=== PATIENT | female | born 1995 | race Caucasian/White ===

== ENCOUNTER 2024-01-20 06:47 | Inpatient (IN) ==
[2024-01-20] MEDS ORDERED: LIDOCAINE 1% LOCAL 20 ML VIAL INFIL PRN (07:56)
[2024-01-20] MEDS: LACTATED RINGER'S 1,000 ML IV PRN (08:13)
[2024-01-20 08:24] LABS: Hematocrit (blood only) 33.6 % (37.0-47.0); Hemoglobin 12.1 g/dl (12.0-16.0); Mean Corpuscular Volume 88.9 fL (80.0-100.0); Mean Platelet Volume 9.6 fL (9.4-12.4); Platelet Count 252 K/uL (130-400); RDW Coefficient of Variation 11.8 % (11.5-14.5); RDW Standard Deviation 37.7 fL (36.4-46.3); Red Blood Count 3.78 M/uL (4.20-5.40)
[2024-01-20] MEDS: PENICILLIN GK 6 MU in DEXTROSE 5% 250 ML IV ONE (08:24)
--- NOTE | 2024-01-20 08:34 | Anesthesiology Consultation ---
Date of Service January 20, 2024 Assessment & Plan Chart Review Chart Review: Acceptable Risk for Labor Epidural Consults Requested none ASA ASA2 Proposed Anesthesia Anesthesia Type: Labor Epidural Risk / Benefits Reviewed With: PT / POA / Parent / Guardian, Accepts Plan and Informed Consent Obtained History Height/Weight Height: 5 ft 3 in Weight: 81.647 kg Allergies Allergy/AdvReac Type Severity Reaction Status Date / Time pineapple AdvReac Swelling Verified 01/20/24 07:23 of Lip/Tongue/Throat shellfish derived AdvReac Hives Verified 01/20/24 07:23 Medications Home Medications Medication Instructions Recorded Confirmed Last Taken vit 168-iron 27 mg-folic 1 cap PO DAILY 07/02/23 01/12/24 01/19/24 21:00 acid 800 mcg-omega3 235 mg capsule (One-A-Day -1) ondansetron 4 mg disintegrating 4 mg PO DAILY #30 tabs 08/07/23 01/20/24 Unknown tablet aspirin 81 mg tablet,delayed 81 mg PO DAILY 01/12/24 01/20/24 01/19/24 21:00 release ferrous gluconate 225 mg (27 mg 225 mg PO DAILY 01/12/24 01/20/24 01/19/24 21:00 iron) tablet (Fergon) Active Medications Generic Name Dose Route Start Last Admin Trade Name Camronq PRN Reason Stop Dose Admin Lactated Ringer's 1,000 mls @ 125 mls/hr 01/20/24 07:56 01/20/24 08:13 Lr IV 01/22/24 07:55 999 mls/hr .Q8H PRN Administration L&D Protocol Protocol Penicillin G Potassium 6 mu/ 262 mls @ 262 mls/hr 01/20/24 08:10 01/20/24 08:24 Dextrose IV 01/20/24 09:09 262 mls/hr 0810 ONE Administration Past Medical History Medical History Benign positional vertigo Migraine Depression Anxiety Exercise / Class Metabolic Activity II 4-5 Yardwork/Stairs/Walk up hill Past Family History Family History Grandmother (Paternal) Ovarian cancer Father Burkitts lymphoma Sister Fibromyalgia TIA (transient ischemic attack) Other Hypertension Denies family history of Prostate cancer Myocardial infarction Breast cancer Colorectal cancer Past Surgical History Surgical History H/O wisdom tooth extraction Past Anesthesia History No Hx of Anesthesia Complications and No Family Hx of Anesthesia Complications History of PONV No Hx of PONV and No Hx of Motion Sickness Social History Smoking Status: Never smoker Do You Dip or Chew Tobacco: No Hx Alcohol Use: Yes Hx Substance Use: No Physical Exam Vital Signs Last Vital Signs Temp 98.1 F 01/20/24 07:10 Pulse 73 01/20/24 07:05 Resp 20 01/20/24 07:10 BP 129/74 01/20/24 07:05 ENMT Mouth: no dentition abnormality Thyromental Distance: > or= 3.5 Finger Breadths Mallampati Class: II Neck normal visual inspection Respiratory normal respiratory effort Auscultation: lungs clear to auscultation bilaterally Cardiovascular Rate/Rhythm: regular rate and regular rhythm Testing Laboratory Results 01/20/24 08:09
--- NOTE | 2024-01-20 08:43 | History & Physical Report ---
Date of Service January 20, 2024 Assessment & Plan (1) Premature labor: Plan Patient in labor at 35 weeks Will admit patient to L&D for further monitoring and management VSS Fetus cat 1 Rh positive mother GBS unknown; treat with Penicillin and GBS ordered RI Pitocin as needed Epidural prn Will manage expectantly Patient in agreement History of Present Illness Chief Complaint: LABOR CHECK Primary Care Provider: Maria Antonia Sheikh MD Krysten is a 28 y/o female currently at IUP 35 6/7 WGA with an JORDAN 02/18/24 as determined by certain LMP. Patient began experiencing contractions on Friday (01/18/24) which were occurring every 20 minutes. This continued through Friday (01/19/24) still every 15-20 minutes. Last night at 10pm-12am they got slightly stronger and at 12-2am they stopped. Between 2-3 am her contractions started again and were occurring every 5-7 minutes and were gradually increasing in intensity. On the car ride to the hospital, they increased in frequency once more to every 3-5minutes and were getting more intense. She has not had watery discharge or bloody shows. On arrival, she was examined by Dr. Renae and found to be 7 cm/ 90 / -1. (+) contractions (+) movement (-) fluid loss (-) bloody show External FHT and external uterine monitors used * Category 1 tracing * Moderate FHT variability. Had regular appointments since 1st trimester. OB Labs: Blood Type A Positive 07/09/23 Antibody Screen NEGATIVE 07/09/23 Hemoglobin 10.8 g/dl (12.0-16.0) L 12/02/23 Hematocrit 31.6 % (37.0-47.0) L 12/02/23 Mean Corpuscular Volume 89.1 fL (80.0-100.0) 07/09/23 Platelet Count 328 K/uL (130-400) 07/09/23 Rubella IgG Antibody Immune (Immune) 07/09/23 Rapid Plasma Reagin Nonreactive (Nonreactive) 07/09/23 Hepatitis B Surface Antigen. NON-REACTIVE (NON-REACTIVE) 07/09/23 Hepatitis C Antibody (EIA) NON-REACTIVE (NON-REACTIVE) 07/09/23 HIV (1&2) Ag and Ab Confirmation NON-REACTIVE (NON-REACTIVE) 07/09/23 Glucose 1 Hour 50 gm Load 136 mg/dl (70-130) H 12/02/23 OB Optional Labs: Chlamydia trachomatis RNA Not Detected (NotDetected) 07/09/23 Neisseria gonorrhoeae RNA Not Detected (NotDetected) 07/09/23 Labs Reviewed: Declines genetics--mln Allergies Allergy/AdvReac Type Severity Reaction Status Date / Time pineapple AdvReac Swelling Verified 01/20/24 07:23 of Lip/Tongue/Throat shellfish derived AdvReac Hives Verified 01/20/24 07:23 Home Medications Medication Instructions Recorded Confirmed Type vit 168-iron 27 mg-folic 1 cap PO DAILY 07/02/23 01/12/24 History acid 800 mcg-omega3 235 mg capsule (One-A-Day -1) ondansetron 4 mg disintegrating 4 mg PO DAILY #30 tabs 08/07/23 01/20/24 Rx tablet aspirin 81 mg tablet,delayed 81 mg PO DAILY 01/12/24 01/20/24 History release ferrous gluconate 225 mg (27 mg 225 mg PO DAILY 01/12/24 01/20/24 History iron) tablet (Fergon) Patient History Medical History Benign positional vertigo Migraine Depression Anxiety Surgical History H/O wisdom tooth extraction Family History Grandmother (Paternal) Ovarian cancer Father Burkitts lymphoma Sister Fibromyalgia TIA (transient ischemic attack) Other Hypertension Denies family history of Prostate cancer Myocardial infarction Breast cancer Colorectal cancer Social History (Updated 01/12/24 @ 10:55 by Eulalia Mathis LPN) Smoking Status: Never smoker Second Hand Exposure: No; Do You Dip or Chew Tobacco: No; Hx Alcohol Use: Yes Alcohol Intake Frequency: Monthly or Less Hx Substance Use: No Preferred Language: Chinese Communication Ability: Effective Hearing Ability: Normal Media Relations Specialist Required: No Beliefs That Will Affect Care: None marital status: marital status details: tiff (27) [phone] Current Living Situation: Spouse Current Living Situation Comment: lives with spouse, 2 dogs, 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 Other Information That Helps Us Care for You: No Feels Safe at Home: Yes Safety Concerns: Feels Safe At This Time Childhood Exposure to Second-Hand Smoke: No Diet: regular Dental Care, Regularly: Yes Physical Activity Frequency: Other Physical Activity Frequency Comment: Limited by physical condition- Seatbelt Use: always Assistive Devices: None MEDICAL SALES History Last menstrual period: Yes Menstrual reliability: definite Flow: heavy Menstrual regularity: regular Monthly: Yes Age at menarche: 14 On control pills at conception: No Date of positive home test: 06/11/23 Menstrual history comments: 28 day cycles. Review of Systems no fever, no chills and no sweats Denies changes in vision. Denies shortness of breath or respiratory difficulty. no chest pain and no palpitations no dysuria no headache(s) Physical Exam Physical Exam: General: Alert, oriented x3. Afebrile. No acute distress. Eyes: Pupils equal and reactive to light bilaterally. Extraocular movement intact bilaterally. Cardiac: Regular rate and rhythm, no murmurs/rubs/gallops. Respiratory: Clear to auscultation bilaterally a/p, no wheezes/rales/rhonchi. No increased work of breathing. Symmetrical chest rise. No respiratory distress. Abdomen: Gravid; FHR baseline of 125-130 bpm; Vertex position Pelvic: 9 / 100 / [address] Dumont Lower Extremities: No lower extremity edema or swelling. No deep calf pain. Fede's negative bilaterally Results & Data Vital Signs (Past 12 Hours) Vital Signs Temp Pulse Resp BP Pulse Ox 01/20/24 08:40 70 01/20/24 08:40 126/86 01/20/24 08:38 100 01/20/24 08:38 69 01/20/24 07:10 36.7 C 20 01/20/24 07:05 73 129/74 Supervising Physician Co-Signing Physician Notes Resident Physician Supervision Note: I interviewed and examined the patient. Discussed with Dr. Mcclure and agree with findings and plan as documented in the note. Any exceptions or clarifications are listed here: 28yo @ 35 6/7, spontaneous labor, admitted this morning. GBS unknown - PCN administered. Documented By: Eloise Dumont,
[2024-01-20] MEDS: LIDOCAINE 2%/EPINEPHRINE 1:200,000 20 ML PF ONE (08:45)
[2024-01-20] MEDS: BUPIVACAINE 0.25% PF 30 ML VIAL ONE (08:45)
[2024-01-20] MEDS ORDERED: NALOXONE HCL 1 MG in SODIUM CHLORIDE 0.9% 1,000 ML IV PRN (08:54)
[2024-01-20] MEDS ORDERED: ePHEDrine sulfate 50 MG/ML AMP IV PRN (08:54)
[2024-01-20] MEDS ORDERED: LIDOCAINE 2% MPF LOCAL 5 ML VIAL EPI PRN (08:54)
[2024-01-20] MEDS ORDERED: fentaNYL citrate PF 100 MCG/2 ML VIAL EPI PRN (08:54)
[2024-01-20] MEDS ORDERED: BUPIVACAINE 0.25% PF 30 ML VIAL EPI PRN (08:54)
[2024-01-20] MEDS ORDERED: ONDANSETRON INJ 2 MG/ML 2 ML VIAL IV PRN (08:54)
[2024-01-20] MEDS ORDERED: ROPIVACAINE 0.5% PF 5 MG/ML 20 ML VIAL EPI PRN (08:54)
[2024-01-20] MEDS ORDERED: SODIUM CHLORIDE 0.9% PF INJ 10 ML VIAL EPI PRN (08:54)
[2024-01-20] MEDS ORDERED: NALOXONE HCL 0.4 MG/1 ML VIAL/CARP IV PRN (08:54)
[2024-01-20] MEDS ORDERED: fentANYL 2 MCG/ML BUPIVacaine 0.125%-NSS 100ML BAG EPI PRN (08:54)
[2024-01-20] MEDS ORDERED: diphenhydrAMINE 50 MG/ML VIAL IV PRN (08:54)
[2024-01-20] MEDS: fentANYL 2 MCG/ML BUPIVacaine 0.125%-NSS 100ML BAG ONE (08:54)
[2024-01-20] MEDS ORDERED: NALBUPHINE HCL 5 MG in SYRINGE 0 ML IV PRN (08:54)
[2024-01-20] MEDS: ePHEDrine sulfate 50 MG/ML AMP ONE (09:12)
[2024-01-20] MEDS: SODIUM CHLORIDE 0.9% PF INJ 10 ML VIAL ONE (09:13)
[2024-01-20] MEDS: fentaNYL citrate PF 100 MCG/2 ML VIAL ONE (09:13)
--- NOTE | 2024-01-20 09:46 | History & Physical Report ---
Date of Service January 20, 2024 Assessment & Plan (1) Premature labor: Plan Krysten is a 28-year-old G1, P0 currently at 35 weeks 6 days gestational age in active labor. 1. Fetus: Cat 1 2. Labor: Active 3. GBS Unknown: PCN 4. Vitals wnl History of Present Illness Primary Care Provider: Maria Antonia Sheikh MD Krysten is a 28-year-old G1, P0 currently at 35 weeks 6 days gestational age presents in active labor. has been uncomplicated to date. OB Labs: Blood Type A Positive 07/09/23 Antibody Screen NEGATIVE 07/09/23 Hemoglobin 10.8 g/dl (12.0-16.0) L 12/02/23 Hematocrit 31.6 % (37.0-47.0) L 12/02/23 Mean Corpuscular Volume 89.1 fL (80.0-100.0) 07/09/23 Platelet Count 328 K/uL (130-400) 07/09/23 Rubella IgG Antibody Immune (Immune) 07/09/23 Rapid Plasma Reagin Nonreactive (Nonreactive) 07/09/23 Hepatitis B Surface Antigen. NON-REACTIVE (NON-REACTIVE) 07/09/23 Hepatitis C Antibody (EIA) NON-REACTIVE (NON-REACTIVE) 07/09/23 HIV (1&2) Ag and Ab Confirmation NON-REACTIVE (NON-REACTIVE) 07/09/23 Glucose 1 Hour 50 gm Load 136 mg/dl (70-130) H 12/02/23 OB Optional Labs: Chlamydia trachomatis RNA Not Detected (NotDetected) 07/09/23 Neisseria gonorrhoeae RNA Not Detected (NotDetected) 07/09/23 Labs Reviewed: Declines genetics--mln Allergies Allergy/AdvReac Type Severity Reaction Status Date / Time pineapple AdvReac Swelling Verified 01/20/24 07:23 of Lip/Tongue/Throat shellfish derived AdvReac Hives Verified 01/20/24 07:23 Home Medications Medication Instructions Recorded Confirmed Type vit 168-iron 27 mg-folic 1 cap PO DAILY 07/02/23 01/12/24 History acid 800 mcg-omega3 235 mg capsule (One-A-Day -1) ondansetron 4 mg disintegrating 4 mg PO DAILY #30 tabs 08/07/23 01/20/24 Rx tablet aspirin 81 mg tablet,delayed 81 mg PO DAILY 01/12/24 01/20/24 History release ferrous gluconate 225 mg (27 mg 225 mg PO DAILY 01/12/24 01/20/24 History iron) tablet (Fergon) Patient History Medical History Benign positional vertigo Migraine Depression Anxiety Surgical History H/O wisdom tooth extraction Family History Grandmother (Paternal) Ovarian cancer Father Burkitts lymphoma Sister Fibromyalgia TIA (transient ischemic attack) Other Hypertension Denies family history of Prostate cancer Myocardial infarction Breast cancer Colorectal cancer Social History (Updated 01/12/24 @ 10:55 by Eulalia Mathis LPN) Smoking Status: Never smoker Second Hand Exposure: No; Do You Dip or Chew Tobacco: No; Hx Alcohol Use: Yes Alcohol Intake Frequency: Monthly or Less Hx Substance Use: No Preferred Language: Slovenian Communication Ability: Effective Hearing Ability: Normal Brim Cutter Required: No Beliefs That Will Affect Care: None marital status: marital status details: tiff (27) [phone] Current Living Situation: Spouse Current Living Situation Comment: lives with spouse, 2 dogs, 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 Other Information That Helps Us Care for You: No Feels Safe at Home: Yes Safety Concerns: Feels Safe At This Time Childhood Exposure to Second-Hand Smoke: No Diet: regular Dental Care, Regularly: Yes Physical Activity Frequency: Other Physical Activity Frequency Comment: Limited by physical condition- Seatbelt Use: always Assistive Devices: None Physical Exam Genitourinary: Manual OB Exam: + cervical dilation 7 cm and + cervical effacement 90% OB Exam Monitor Tracing: + external FHT monitor used, + external uterine monitor used and + category I Results & Data Vital Signs (Past 12 Hours) Vital Signs Temp Pulse Resp BP 01/20/24 07:10 36.7 C 20 01/20/24 07:05 73 129/74 Coding Level of Care Code None Diagnoses Premature labor O60.00
--- NOTE | 2024-01-20 10:34 | Labor Progress Brief Note ---
Date of Service January 20, 2024 Subjective Uncomfortable even after epidural. FHT at 1 [place] Q 2-4 SVE anterior lip/bulging membranes/100/0 AROM clear fluid. Continue labor Results & Data Vital Signs (Past 12 Hours) Vital Signs Temp Pulse Resp BP Pulse Ox 01/20/24 10:30 69 01/20/24 10:30 133/73 01/20/24 10:28 96 01/20/24 10:28 77 01/20/24 10:23 96 01/20/24 10:23 106 H 01/20/24 10:18 98 01/20/24 10:18 76 01/20/24 10:14 66 01/20/24 10:14 110/59 L 01/20/24 10:13 96 01/20/24 10:13 66 01/20/24 10:10 93 01/20/24 10:10 68 01/20/24 10:08 97 01/20/24 10:08 74 01/20/24 10:03 99 01/20/24 10:03 84 01/20/24 09:59 68 01/20/24 09:59 107/60 01/20/24 09:58 96 01/20/24 09:58 64 01/20/24 09:58 92 01/20/24 09:58 65 01/20/24 09:53 95 01/20/24 09:53 71 01/20/24 09:48 96 01/20/24 09:48 70 01/20/24 09:47 92 01/20/24 09:47 66 01/20/24 09:44 65 01/20/24 09:44 103/60 01/20/24 09:43 97 01/20/24 09:43 66 01/20/24 09:38 97 01/20/24 09:38 71 01/20/24 09:33 96 01/20/24 09:33 69 01/20/24 09:30 64 01/20/24 09:30 109/60 01/20/24 09:28 97 01/20/24 09:28 83 01/20/24 09:23 96 01/20/24 09:23 88 01/20/24 09:20 93 01/20/24 09:20 85 01/20/24 09:18 97 01/20/24 09:18 69 01/20/24 09:13 99 01/20/24 09:13 63 01/20/24 09:13 105/56 L 01/20/24 09:11 73 01/20/24 09:11 105/55 L 01/20/24 09:09 69 01/20/24 09:09 105/55 L 01/20/24 09:08 99 01/20/24 09:08 66 01/20/24 09:07 76 01/20/24 09:07 133/70 01/20/24 09:05 66 01/20/24 09:05 131/63 01/20/24 09:03 100 01/20/24 09:03 74 01/20/24 09:03 72 01/20/24 09:03 126/69 01/20/24 09:01 85 01/20/24 09:01 116/66 01/20/24 08:59 68 01/20/24 08:59 111/67 01/20/24 08:58 98 01/20/24 08:58 63 01/20/24 08:57 82 01/20/24 08:57 130/63 01/20/24 08:55 68 01/20/24 08:55 133/62 01/20/24 08:53 97 01/20/24 08:53 82 01/20/24 08:53 70 01/20/24 08:53 126/58 L 01/20/24 08:51 68 01/20/24 08:51 125/67 01/20/24 08:50 80 01/20/24 08:50 126/69 01/20/24 08:48 99 01/20/24 08:48 71 01/20/24 08:47 71 01/20/24 08:47 129/60 01/20/24 08:45 75 01/20/24 08:45 128/57 L 01/20/24 08:43 100 01/20/24 08:43 73 01/20/24 08:40 70 01/20/24 08:40 126/86 01/20/24 08:38 100 01/20/24 08:38 69 01/20/24 07:10 36.7 C 20 01/20/24 07:05 73 129/74 Coding Level of Care Code None
[2024-01-20] MEDS ORDERED: PENICILLIN GK 3 MU in DEXTROSE 5% 100 ML IV PRN (10:56)
--- NOTE | 2024-01-20 12:00 | Labor Progress Brief Note ---
Date of Service January 20, 2024 Subjective Complete dilation, actively pushing. FHT Cat 1 [place] Q 2 station 2+ Continue pushing. Results & Data Vital Signs (Past 12 Hours) Vital Signs Temp Pulse Resp BP Pulse Ox 01/20/24 11:58 98 01/20/24 11:58 79 01/20/24 11:53 99 01/20/24 11:53 81 01/20/24 11:48 99 01/20/24 11:48 85 01/20/24 11:45 67 01/20/24 11:45 117/71 01/20/24 11:43 98 01/20/24 11:43 72 01/20/24 11:38 98 01/20/24 11:38 62 01/20/24 11:33 97 01/20/24 11:33 65 01/20/24 11:31 69 01/20/24 11:31 121/74 01/20/24 11:28 98 01/20/24 11:28 72 01/20/24 11:23 99 01/20/24 11:23 70 01/20/24 11:18 98 01/20/24 11:18 76 01/20/24 11:15 67 01/20/24 11:15 123/64 01/20/24 11:13 99 01/20/24 11:13 67 01/20/24 11:08 98 01/20/24 11:08 67 01/20/24 11:03 98 01/20/24 11:03 74 01/20/24 11:01 20 01/20/24 11:01 20 01/20/24 11:00 71 01/20/24 11:00 114/68 01/20/24 10:58 97 01/20/24 10:58 74 01/20/24 10:53 97 01/20/24 10:53 78 01/20/24 10:48 97 01/20/24 10:48 77 01/20/24 10:45 82 01/20/24 10:45 120/64 01/20/24 10:43 97 01/20/24 10:43 79 01/20/24 10:38 96 01/20/24 10:38 72 01/20/24 10:33 99 01/20/24 10:33 71 01/20/24 10:31 20 01/20/24 10:31 37.2 C 20 01/20/24 10:30 69 01/20/24 10:30 133/73 01/20/24 10:28 96 01/20/24 10:28 77 01/20/24 10:23 96 01/20/24 10:23 106 H 01/20/24 10:18 98 01/20/24 10:18 76 01/20/24 10:15 20 01/20/24 10:15 20 01/20/24 10:14 66 01/20/24 10:14 110/59 L 01/20/24 10:13 96 01/20/24 10:13 66 01/20/24 10:10 93 01/20/24 10:10 68 01/20/24 10:08 97 01/20/24 10:08 74 01/20/24 10:03 99 01/20/24 10:03 84 01/20/24 10:01 20 01/20/24 10:01 20 01/20/24 09:59 68 01/20/24 09:59 107/60 01/20/24 09:58 96 01/20/24 09:58 64 01/20/24 09:58 92 01/20/24 09:58 65 01/20/24 09:53 95 01/20/24 09:53 71 01/20/24 09:48 96 01/20/24 09:48 70 01/20/24 09:47 92 01/20/24 09:47 66 01/20/24 09:46 20 01/20/24 09:46 20 01/20/24 09:44 65 01/20/24 09:44 103/60 01/20/24 09:43 97 01/20/24 09:43 66 01/20/24 09:38 97 01/20/24 09:38 71 01/20/24 09:33 96 01/20/24 09:33 69 01/20/24 09:30 20 01/20/24 09:30 20 01/20/24 09:30 64 01/20/24 09:30 109/60 01/20/24 09:28 97 01/20/24 09:28 83 01/20/24 09:23 96 01/20/24 09:23 88 01/20/24 09:20 93 01/20/24 09:20 85 01/20/24 09:18 97 01/20/24 09:18 69 01/20/24 09:15 20 01/20/24 09:15 20 01/20/24 09:13 99 01/20/24 09:13 63 01/20/24 09:13 105/56 L 01/20/24 09:11 73 01/20/24 09:11 105/55 L 01/20/24 09:09 69 01/20/24 09:09 105/55 L 01/20/24 09:08 99 01/20/24 09:08 66 01/20/24 09:07 76 01/20/24 09:07 133/70 01/20/24 09:05 66 01/20/24 09:05 131/63 01/20/24 09:03 100 01/20/24 09:03 74 01/20/24 09:03 72 01/20/24 09:03 126/69 01/20/24 09:01 85 01/20/24 09:01 116/66 01/20/24 09:00 20 01/20/24 09:00 20 01/20/24 08:59 68 01/20/24 08:59 111/67 01/20/24 08:58 98 01/20/24 08:58 63 01/20/24 08:57 82 01/20/24 08:57 130/63 01/20/24 08:55 68 01/20/24 08:55 133/62 01/20/24 08:53 97 01/20/24 08:53 82 01/20/24 08:53 70 01/20/24 08:53 126/58 L 01/20/24 08:51 68 01/20/24 08:51 125/67 01/20/24 08:50 80 01/20/24 08:50 126/69 01/20/24 08:48 99 01/20/24 08:48 71 01/20/24 08:47 71 01/20/24 08:47 129/60 01/20/24 08:45 75 01/20/24 08:45 128/57 L 01/20/24 08:43 100 01/20/24 08:43 73 01/20/24 08:40 70 01/20/24 08:40 126/86 03/19/24 08:38 100 01/20/24 08:38 69 01/20/24 07:10 36.7 C 20 01/20/24 07:05 73 129/74 Coding Level of Care Code None
[2024-01-20] MEDS: OXYTOCIN 30 UNITS/NSS 30 UNITS/500 ML BAG IV PRN (12:38)
--- NOTE | 2024-01-20 12:53 | Delivery Summary ---
Vaginal Delivery Summary Date of Service January 20, 2024 Vaginal Delivery Summary and 2nd Degree LAC Vaginal Delivery Summary: Pre-delivery diagnoses: 28yo @ 35 6/7, labor Post-delivery diagnoses: same Procedure: spontaneous vaginal delivery, repair of 2nd degree perineal laceration Surgeon: Eloise Dumont DO Complications: none Findings: Viable male . Apgars: 8/9. Weight pending, please see nursery records. Estimated blood loss: 300ml Description of delivery: The patient progressed to complete with epidural anesthesia. She was 4h from first dose of PCN for GBS unknown. She then began to push. She spontaneously vaginally delivered a viable from the cephalic presentation. The head delivered in ZOILA position. Nuchal x 1, reduced. The anterior shoulder delivered, followed by the posterior shoulder, followed by the body. The baby was placed on mother's abdomen and a spontaneous cry was heard. Delayed cord clamping was employed, and the cord was doubly clamped and cut. Cord blood was obtained. The placenta was delivered spontaneously intact with a 3-vessel cord. The uterus and vagina were swept of clots and debris. IV pitocin was given. The uterus became firm. The cervix, vagina, and perineum were inspected and a 2nd degree perineal laceration was repaired with 3-0 Vicryl in standard fashion. Excellent hemostasis was observed. The mother and baby are recovering in stable and good condition in the room. Sponge, needle and instrument counts were correct x 2. Eloise [facility] DO [facility] Vag[facility] Delivery Charge Delivery Type Details: and 2nd Degree LAC
[2024-01-20] MEDS ORDERED: bisacodyL 10 MG SUPP PR PRN (13:17)
[2024-01-20] MEDS ORDERED: OXYTOCIN 30 UNITS/NSS 30 UNITS/500 ML BAG IV PRN (13:17)
[2024-01-20] MEDS ORDERED: HYDROCORTISONE ACETATE 25 MG SUPP PR PRN (13:17)
--- NOTE | 2024-01-20 13:40 | Anesthesia Procedure Note ---
Date of Service January 20, 2024 Anesthesia Post Epidural Note Vital Signs Vital Signs: Temp Pulse Resp BP Pulse Ox 99.0 F 62 20 128/56 L 98 01/20/24 10:31 01/20/24 13:28 01/20/24 11:01 01/20/24 13:28 01/20/24 12:38 Pain Intensity Bilateral Abdomen: Pain Intensity: 5 Notes Mental Status: alert / awake / arousable and participated in evaluation Nausea / Vomiting: adequately controlled Pain: adequately controlled Airway Patency, RR, SpO2: stable & adequate BP & HR: stable & adequate Hydration State: stable & adequate Neuraxial Anesthesia: was administered and sensory block is resolving Anesthetic Complications: no major complications apparent and Pt Satisfied with anesthetic care Epidural: Removed without complications and With tip intact
[2024-01-20] MEDS: IBUPROFEN 600 MG TAB PO PRN (15:30)
[2024-01-20] MEDS: LIDOCAINE 2%/EPINEPHRINE 1:200,000 20 ML PF EPI STA (16:33)
[2024-01-20] MEDS: fentaNYL citrate PF 100 MCG/2 ML VIAL EPI STA (16:33)
[2024-01-20] MEDS: BUPIVACAINE 0.25% PF 30 ML VIAL EPI STA (16:33)
[2024-01-20] MEDS: SODIUM CHLORIDE 0.9% PF INJ 10 ML VIAL EPI STA (16:33)
[2024-01-20] MEDS: DIPHTHER/TETAN/PERTUS Vaccine (Tdap, Adol/Adult) 0.5mL IM ONE (16:34)
[2024-01-20] MEDS: BENZOCAINE 20% SPRY 85 APPLN/85 GM CAN EXT PRN (17:10)
[2024-01-20] MEDS: ACETAMINOPHEN 325 MG TAB PO PRN (18:50)
[2024-01-20] MEDS: DOCUSATE SODIUM 100 MG CAP PO SCH (20:56)
--- NOTE | 2024-01-21 07:05 | Obstetrical Progress Note ---
Date of Service <Yin Mcclure MD - Last Filed: 01/21/24 07:06> January 21, 2024 Assessment & Plan <Yin Mcclure MD - Last Filed: 01/21/24 07:06> (1) Encounter for assessment: Plan Patient with the above mentioned history and findings was evaluated at bedside and found awake, alert, oriented in all spheres, afebrile, and in no acute distress. Vital signs showed no fever and blood pressures remained stable. Her blood type is A positive and most recent hemoglobin is adequate at 12.1g/dL. Serologies are unknown for GBS (treated during labor) and patient is Rubella immune. Overall, patient is doing well clinically and meeting the desired milestone for her course. Therefore, will discharge patient today. Patient was counselled on discharge instructions. She is to make an appointment with her OB for 6 weeks after discharge for follow up evaluation. All questions were answered. <Eloise Dumont DO - Last Filed: 01/21/24 07:38> (1) Encounter for assessment: Subjective <Yin Mcclure MD - Last Filed: 01/21/24 07:06> Krysten is a 28 y/o female who is now PPD # 1 following at 35 6/7 weeks. Reports feeling well overall this morning. Refers mild abdominal cramping & 2-3/10 pain well managed on analgesics. Voiding spontaneously. Tolerating meals overnight and able to ambulate some. Passing gas but no bm yet. Some persistent lochia with some improvement this morning. Plans to breastfeed and currently breast pumping without issues. Constitutional: no fever, no chills or no sweats Denies shortness of breath or difficulty breathing Cardiovascular: no chest pain or no palpitations Breast: no breast pain Genitourinary (female): no dysuria Neurologic: no headache(s) Denies changes in vision Physical Exam <Yin Mcclure MD - Last Filed: 01/21/24 07:06> General: Alert. Oriented to person, time, and place. Afebrile. No acute distress. Eyes: pupils equal and reactive to light bilaterally, extraocular movements intact. Cardiac: Regular rate and rhythm, no murmurs/rubs/gallops. Respiratory: Clear to auscultation bilaterally a/p, no wheezes/rales/rhonchi. No increased work of breathing. Symmetrical chest rise. No respiratory distress. Abdomen: Soft, nontender, nondistended. Bowel sounds present. Uterus: Uterine fundus firm, nontender, and palpable below umbilicus. Lower Extremities: Mild bilateral LE swelling. No deep calf pain. Fede's negative bilaterally. Psych: Euthymic affect. Mood and affect congruence. Regular speech rate and content. Results & Data <Yin Mcclure MD - Last Filed: 01/21/24 07:06> Vital Signs (Past 12 Hours) Vital Signs Temp Pulse Pulse Resp BP Pulse Ox O2 Del Method 01/21/24 04:30 36.3 C L 68 18 119/79 Room Air 01/21/24 00:30 36.5 C 74 18 120/74 Room Air 01/20/24 21:00 36.5 C 70 20 116/69 96 Room Air Supervising Physician <Eloise Dumont DO - Last Filed: 01/21/24 07:38> Co-Signing Physician Notes Resident Physician Supervision Note: I was present with Dr. Mcclure during the history and exam. I discussed the case with the resident and agree with the findings and plan as documented in the note. Any exceptions or clarifications are listed here: PPD#1 doing well. Desires DC so she can get to [place] to be with baby in NICU. Reviewed instructions. Followup office 6w. Documented By: Eloise Dumont DO
[2024-01-21] MEDS: PRENATAL VITAMIN 1 TAB PO SCH (07:37)
[2024-01-21] MEDS: FERROUS GLUCONATE 324 MG TAB PO SCH (08:36)
[2024-01-21] MEDS: ONDANSETRON 4 MG OD TAB PO SCH (08:38)
[2024-01-21] MEDS: ASPIRIN 81 MG ECTAB PO SCH (08:38)
[2024-01-21] MEDS ORDERED: bisacodyL 5 MG TABEC PO SCH (20:00)
== END 2024-01-21 11:10 | disposition home or self-care (01) | DRG 805 ==
LOC: OPB 06:47 → 4S1 06:50 → 4E2 16:37

== ENCOUNTER 2025-06-27 03:55 | Inpatient (IN) ==
[2025-06-27] MEDS ORDERED: CALCIUM CARBONATE 500 MG CHEWABLE TAB PO PRN (06:44)
[2025-06-27] MEDS ORDERED: LIDOCAINE 1% LOCAL 20 ML VIAL INFIL PRN (06:44)
[2025-06-27] MEDS ORDERED: ACETAMINOPHEN 325 MG TAB PO PRN (06:44)
[2025-06-27] MEDS ORDERED: OXYTOCIN 30 UNITS/NSS 30 UNITS/500 ML BAG IV PRN ×2 (06:47→10:34)
[2025-06-27] MEDS: LACTATED RINGER'S 1,000 ML IV PRN (06:51)
--- NOTE | 2025-06-27 07:01 | History & Physical Report ---
Date of Service June 27, 2025 Assessment & Plan (1) 37 weeks gestation of : Plan Arom when indicated Patient would like epidural Consider pitocin if needed after epidural is given Monitor tracing, category 1 History of Present Illness Chief Complaint: Increased contractions Primary Care Provider: Maria Antonia Sheikh MD [id number] confirmed via LMP. Here for increased contractions. Patient states she started having 15 min apart contractions around midnight last night. It has increased over time to now 2-3 minutes apart. Complications with this include none. Previous had hx of prior at 35 weeks and hx of depression on Zoloft. Has been attending OB appointments regularly. Currently taking no medications. Contractions: 2-3 min apart Fluid or Blood loss: none Movement: active Labs - Blood type: A+ - Antibody screen: negative - H.6 (04/26/25) - Hct: 33.4% (04/26/25) - Wbc: 10.17 (12/28/24) - Plt: 266 (04/26/25) - Rubella: immune - VDRL/RPR: nonreactive - Gonorrhea: negative - Chlamydia: negative - HIV: negative - HbSAg: negative - GBS: negative - Glucose 1 hr 50 gm - 117 Allergies Allergy/AdvReac Type Severity Reaction Status Date / Time No Known Drug Allergies Allergy Unknown Verified 06/20/25 11:02 pineapple AdvReac Severe Swelling Verified 06/20/25 11:02 of Lip/Tongue/Throat shellfish derived AdvReac Hives Verified 06/20/25 11:02 Home Medications Medication Instructions Recorded Confirmed Type vits 168-iron 27 mg-folic 1 cap PO DAILY 07/02/23 06/27/25 History acid 800 mcg-omega3 235 mg capsule (One-A-Day -1) cholecalciferol (vitamin D3) 1 tab PO DAILY 12/08/24 06/27/25 History Patient History Medical History (Updated 06/27/25 @ 07:06 by Cha Duarte DO) History of chicken pox Anemia Benign positional vertigo Migraine Depression Anxiety Surgical History H/O wisdom tooth extraction Family History (Updated 01/17/25 @ 09:37 by Amarilis Robertson LPN) Grandmother (Paternal) Ovarian cancer Father Burkitts lymphoma Sister Fibromyalgia TIA (transient ischemic attack) Grandfather (Paternal) Vertigo Factor 5 Leiden mutation, heterozygous Other Hypertension Denies family history of Prostate cancer Myocardial infarction Breast cancer Colorectal cancer Social History Smoking Status: Never smoker Second Hand Exposure: No; Do You Dip or Chew Tobacco: No; Hx Alcohol Use: No Hx Substance Use: No Preferred Language: Bulgarian Communication Ability: Effective Hearing Ability: Normal Scan Coordinator Required: No Beliefs That Will Affect Care: None marital status: marital status details: Akbar (29) [phone] Current Living Situation: Spouse Current Living Situation Comment: son at home current occupational status: employed 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[employer] How many Children do You have Comment: Currently Feels Safe at Home: Yes Safety Concerns: Feels Safe At This Time Childhood Exposure to Second-Hand Smoke: No Diet: regular Dental Care, Regularly: Yes Physical Activity Frequency: Other Physical Activity Frequency Comment: Limited by physical condition- Seatbelt Use: always Assistive Devices: Glasses OB History : 2 Full term: 0 Premature: 1 Total Number of Induced Abortions: 0 Total Number of Spontaneous Abortions: 0 Ectopics: 0 Multiple births: 0 Number of Living Children: 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 Renae Review of Systems All systems reviewed & are unremarkable except as noted in HPI & below Physical Exam Constitutional: WD/WN, vitals as above Respiratory: normal respiratory effort, lungs clear to auscultation Cardiovascular: RRR, no murmur, no edema Gastrointestinal (Abdomen): normal bowel sounds, soft, nontender, no hepatosplenomegaly +gravid Skin: no rashes, warm and dry Genitourinary: Manual OB Exam: + cervical dilation 7 cm, + cervical effacement 100% and + station [address] Dumont Results & Data Vital Signs (Past 12 Hours) Vital Signs Temp Pulse Resp BP 06/27/25 04:26 36.8 C 81 18 124/67 06/27/25 04:25 88 143/72 H Laboratory Results OB Labs: Blood Type A Positive 12/28/24 Antibody Screen NEGATIVE 12/28/24 Hgb 11.6 g/dl (12.0-16.0) L 04/26/25 Hct 33.4 % (37.0-47.0) L 04/26/25 MCV 88.9 fL (80.0-100.0) 12/28/24 Plt Count 266 K/uL (130-400) 12/28/24 Rubella IgG Antibody Immune (Immune) 12/28/24 RPR Nonreactive (Nonreactive) 07/09/23 Treponema pallidum Ab Negative (Negative) 04/26/25 Hep Bs Antigen Negative (Negative) 12/28/24 Hep Bs Antigen NON-REACTIVE (NON-REACTIVE) 07/09/23 Hepatitis C Antibody Negative (Negative) 12/28/24 Hepatitis C Ab (EIA) NON-REACTIVE (NON-REACTIVE) 07/09/23 HIV 1&2 Ab/P24 Ag 4thGn Negative (Negative) 12/28/24 HIV (1&2) Ag & Ab Conf NON-REACTIVE (NON-REACTIVE) 07/09/23 Glucose 1 Hr 50 gm 117 mg/dl (70-130) 04/26/25 OB Optional Labs: Chlamydia trachomatis RNA Not Detected (NotDetected) 12/14/24 Neisseria gonorrhoeae RNA Not Detected (NotDetected) 12/14/24 Monitoring External Monitor HR: 145 Variability: moderate Accelerations: present Decelerations: absent Category 1 tracing Supervising Physician Co-Signing Physician Notes Resident Physician Supervision Note: I interviewed and examined the patient. Discussed with Dr. Duarte and agree with findings and plan as documented in the note. Any exceptions or clarifications are listed here: Admit for labor, she plans for epidural. Documented By: Eloise Dumont, Resident Activity Tracking Resident Involvement: Resident Care Provided Care Provided: OB Delivery
[2025-06-27 07:05] LABS: Hematocrit (blood only) 32.7 % (37.0-47.0); Hemoglobin 11.5 g/dl (12.0-16.0); Mean Corpuscular Hemoglobin 31.9 pg (25.0-34.0); Mean Corpuscular Volume 90.8 fL (80.0-100.0); Platelet Count 180 K/uL (130-400); RDW Standard Deviation 39.1 fL (36.4-46.3); Red Blood Count 3.60 M/uL (4.20-5.40); White Blood Count 13.34 K/ul (4.8-10.8)
--- NOTE | 2025-06-27 07:38 | Anesthesiology Consultation ---
Date of Service June 27, 2025 Assessment & Plan (1) Encounter for pre-operative examination: Chart Review Chart Review: Acceptable Risk for Labor Epidural History Height/Weight Height: 5 ft 3 in Weight: 84.822 kg Allergies Allergy/AdvReac Type Severity Reaction Status Date / Time No Known Drug Allergies Allergy Unknown Verified 06/20/25 11:02 pineapple AdvReac Severe Swelling Verified 06/20/25 11:02 of Lip/Tongue/Throat shellfish derived AdvReac Hives Verified 06/20/25 11:02 Medications Home Medications Medication Instructions Recorded Confirmed Last Taken vits 168-iron 27 mg-folic 1 cap PO DAILY 07/02/23 06/27/25 06/26/25 acid 800 mcg-omega3 235 mg capsule (One-A-Day -1) cholecalciferol (vitamin D3) 1 tab PO DAILY 12/08/24 06/27/25 06/26/25 Active Medications Generic Name Dose Route Start Last Admin Trade Name Freq PRN Reason Stop Dose Admin Lactated Ringer's 1,000 mls @ 125 mls/hr 06/27/25 06:44 06/27/25 06:51 Lr IV 06/29/25 06:43 999 mls/hr .Q8H PRN Administration L&D Protocol Protocol Past Medical History Medical History History of chicken pox Anemia Benign positional vertigo Migraine Depression Anxiety Past Family History Family History Grandmother (Paternal) Ovarian cancer Father Burkitts lymphoma Sister Fibromyalgia TIA (transient ischemic attack) Grandfather (Paternal) Vertigo Factor 5 Leiden mutation, heterozygous Other Hypertension Denies family history of Prostate cancer Myocardial infarction Breast cancer Colorectal cancer Past Surgical History Surgical History H/O wisdom tooth extraction Social History Smoking Status: Never smoker Do You Dip or Chew Tobacco: No Hx Alcohol Use: No Hx Substance Use: No Physical Exam Vital Signs Last Vital Signs Temp 36.8 C 06/27/25 04:26 Pulse 72 06/27/25 07:35 Resp 18 06/27/25 04:26 BP 139/79 06/27/25 07:14 Pulse Ox 96 06/27/25 07:35 Testing Laboratory Results 06/27/25 06:52
[2025-06-27] MEDS: BUPIVACAINE 0.25% PF 30 ML VIAL ONE (07:58)
[2025-06-27] MEDS: SODIUM CHLORIDE 0.9% PF INJ 10 ML VIAL ONE (07:58)
[2025-06-27] MEDS: LIDOCAINE 2%/EPINEPHRINE 1:200,000 20 ML PF ONE (07:59)
[2025-06-27] MEDS ORDERED: fentANYL 2 MCG/ML BUPIVacaine 0.125%-NSS 100ML BAG EPI PRN (08:03)
[2025-06-27] MEDS ORDERED: NALOXONE HCL 1 MG in SODIUM CHLORIDE 0.9% 1,000 ML IV PRN (08:03)
[2025-06-27] MEDS ORDERED: BUPIVACAINE 0.25% PF 30 ML VIAL EPI PRN (08:03)
[2025-06-27] MEDS ORDERED: NALOXONE HCL 0.4 MG/1 ML VIAL/CARP IV PRN (08:03)
[2025-06-27] MEDS ORDERED: ONDANSETRON INJ 2 MG/ML 2 ML VIAL IV PRN (08:03)
[2025-06-27] MEDS ORDERED: ROPIVACAINE 0.5% PF 5 MG/ML 20 ML VIAL EPI PRN (08:03)
[2025-06-27] MEDS ORDERED: SODIUM CHLORIDE 0.9% PF INJ 10 ML VIAL EPI PRN (08:03)
[2025-06-27] MEDS ORDERED: LIDOCAINE 2% MPF LOCAL 5 ML VIAL EPI PRN (08:03)
[2025-06-27] MEDS: fentANYL 2 MCG/ML BUPIVacaine 0.125%-NSS 100ML BAG ONE (08:04)
[2025-06-27] MEDS: OXYTOCIN 30 UNITS/NSS 30 UNITS/500 ML BAG IV PRN (10:26)
[2025-06-27] MEDS: METHYLERGONOVINE MALEATE 0.2 MG/ML AMP ONE (10:29)
[2025-06-27] MEDS ORDERED: DIPHTHER/TETAN/PERTUS Vaccine (Tdap, Adol/Adult) 0.5mL IM ONE (10:34)
[2025-06-27] MEDS ORDERED: HYDROCORTISONE ACETATE 25 MG SUPP PR PRN (10:34)
[2025-06-27] MEDS ORDERED: BENZOCAINE 20% SPRY 85 APPLN/85 GM CAN EXT PRN (10:34)
--- NOTE | 2025-06-27 10:41 | Delivery Summary ---
Vaginal Delivery Summary Date of Service June 27, 2025 Vaginal Delivery Summary and 2nd Degree LAC Pre-operative Diagnosis: at 37 weeks active labor Post-operative Diagnosis: same Procedure: epidural second degree laceration and repair EBL: 445cc Anesthesia: epidural Procedure: The patient presented to labor and delivery in active labor. She got an epidural and progressed to c/c/+3 station. The patient pushed for 3 contractions to deliver a viable male in keagan position. The rest of the infant was then delivered without difficulty. The was placed onthe maternal abodomen. The baby was vigorous. Cord was clamped and cut at one minute of life. Cord blood obtained. There was a loose true knot in the cord. Placenta delivered spontaneous, intact with a three vessel cord. Cervix/sulci/rectum were intact. A second degree perineal laceration was repaired in the normal standard fashion. Hemostasis obtained with dilute pitocin and fundal massage. Apgars were 8/9. Mother and baby doing well at the end of the delivery. [facility] Vaginal Delivery Charge Delivery Type Details: and 2nd Degree LAC
[2025-06-27] MEDS: BUPIVACAINE 0.25% PF 30 ML VIAL EPI STA (12:09)
[2025-06-27] MEDS: SODIUM CHLORIDE 0.9% PF INJ 10 ML VIAL EPI STA (12:09)
[2025-06-27] MEDS: LIDOCAINE 2%/EPINEPHRINE 1:200,000 20 ML PF EPI STA (12:09)
[2025-06-27] MEDS: METHYLERGONOVINE MALEATE 0.2 MG/ML AMP IM ONE (12:10)
[2025-06-27] MEDS: ACETAMINOPHEN 325 MG TAB PO PRN (12:27)
--- NOTE | 2025-06-27 12:51 | Anesthesia Procedure Note ---
Date of Service June 27, 2025 Anesthesia Post Epidural Note Vital Signs Vital Signs: Temp Pulse Resp BP Pulse Ox 36.8 C 71 20 116/68 90 06/27/25 09:30 06/27/25 12:39 06/27/25 12:09 06/27/25 12:39 06/27/25 10:20 Notes Mental Status: alert / awake / arousable Nausea / Vomiting: adequately controlled Pain: adequately controlled Airway Patency, RR, SpO2: stable & adequate BP & HR: stable & adequate Hydration State: stable & adequate Neuraxial Anesthesia: was administered and sensory block is resolving Anesthetic Complications: no major complications apparent and Pt Satisfied with anesthetic care Epidural: Removed without complications and With tip intact
[2025-06-27] MEDS: IBUPROFEN 600 MG TAB PO PRN (14:21)
[2025-06-27 16:18] VITALS: RESP 18
[2025-06-27] MEDS: DOCUSATE SODIUM 100 MG CAP PO SCH (20:36)
--- NOTE | 2025-06-28 06:38 | Obstetrical Progress Note ---
Date of Service <Cha Duarte DO - Last Filed: 06/28/25 07:48> June 28, 2025 Assessment & Plan <Cha Duarte DO - Last Filed: 06/28/25 07:48> (1) care following vaginal delivery: Plan 29 yo post- day 1 s/p . Feels well today. Vital signs stable Continue post- care Encourage ambulation and Pain controlled with ibuprofen Hgb stable Discharge home today, follow up with Dr. Jon in 6 weeks. Make an appointment at 10 days for mood check-in. <Marie Jon MD, FACOG - Last Filed: 06/28/25 07:49> (1) care following vaginal delivery: Subjective <Cha Duarte DO - Last Filed: 06/28/25 07:48> 29 yo post- day 1 s/p . Ambulation: ambulating normally Voiding: no voiding problems Passing Gas:: Yes Passing Stool:: No Diet Tolerance:: regular diet Lochia:: Small Feeding Type:: breast feeding Current Pain Level: 2/10 Resting comfortably this AM in NAD. Denies LEDBETTER, CP, SOB, N/V/D, LE pain/swelling. Review of Systems All systems reviewed & are unremarkable except as noted in HPI & below Physical Exam <Cha Duarte DO - Last Filed: 06/28/25 07:48> General: patient resting comfortably, NAD, non-toxic in appearance, AA&O x 4, answers questions appropriately. Skin: warm, dry, intact HEENT: NC/AT, anicteric sclera, conjunctiva without injection, moist mucus membranes. Heart: +S1/S2, regular, no m/r/g Lungs: equal air entry bilaterally, no rales/rhonchi/wheezes Abd: +BS, soft, NT/ND, uterine fundus firm at umbilicus Ext: warm, no clubbing/cyanosis or edema, Fede's neg. Neuro: nonfocal, patient AA&O x 4, speech intact, no facial droop, moving all extremities on command. Results & Data <Cha Duarte DO - Last Filed: 06/28/25 07:48> Vital Signs (Past 12 Hours) Vital Signs Temp Pulse Resp BP Pulse Ox O2 Del Method 08/26/25 03:43 36.7 C 57 L 18 106/69 96 Room Air 06/28/25 00:05 36.6 C 62 18 106/69 95 Room Air 06/27/25 20:07 37.2 C 67 18 112/70 96 Room Air Laboratory Results OB Labs: Blood Type A Positive 12/28/24 Antibody Screen NEGATIVE 12/28/24 Hgb 11.6 g/dl (12.0-16.0) L 04/26/25 Hct 33.4 % (37.0-47.0) L 04/26/25 MCV 88.9 fL (80.0-100.0) 12/28/24 Plt Count 266 K/uL (130-400) 12/28/24 Rubella IgG Antibody Immune (Immune) 12/28/24 RPR Nonreactive (Nonreactive) 07/09/23 Treponema pallidum Ab Negative (Negative) 04/26/25 Hep Bs Antigen Negative (Negative) 12/28/24 Hep Bs Antigen NON-REACTIVE (NON-REACTIVE) 07/09/23 Hepatitis C Antibody Negative (Negative) 12/28/24 Hepatitis C Ab (EIA) NON-REACTIVE (NON-REACTIVE) 07/09/23 HIV 1&2 Ab/P24 Ag 4thGn Negative (Negative) 12/28/24 HIV (1&2) Ag & Ab Conf NON-REACTIVE (NON-REACTIVE) 07/09/23 Glucose 1 Hr 50 gm 117 mg/dl (70-130) 04/26/25 OB Optional Labs: Chlamydia trachomatis RNA Not Detected (NotDetected) 12/14/24 Neisseria gonorrhoeae RNA Not Detected (NotDetected) 12/14/24 Supervising Physician <Marie Jon MD, FACOG - Last Filed: 06/28/25 07:49> Co-Signing Physician Notes Resident Physician Supervision Note: I interviewed and examined the patient. Discussed with Dr. Driver and agree with findings and plan as documented in the note. Any exceptions or clarifications are listed here: Doing well. Plan d/c today. Instructions given. Documented By: Marie Jon MD, FACOG Resident Activity Tracking <Cha Duarte DO - Last Filed: 06/28/25 07:48> Resident Involvement: Resident Care Provided Care Provided: OB Delivery
[2025-06-28 06:41] LABS: Hematocrit (blood only) 29.3 % (37.0-47.0); Hemoglobin 10.3 g/dl (12.0-16.0); Mean Corpuscular Hemoglobin 32.9 pg (25.0-34.0); Mean Corpuscular Volume 93.6 fL (80.0-100.0); Platelet Count 156 K/uL (130-400); RDW Standard Deviation 41.8 fL (36.4-46.3); Red Blood Count 3.13 M/uL (4.20-5.40); White Blood Count 10.47 K/ul (4.8-10.8)
[2025-06-28] MEDS: PRENATAL VITAMIN 1 TAB PO SCH (07:47)
[2025-06-28 08:02] VITALS: BP 110/72; PULSE 62; TEMP 97.7; O2SAT 97
== END 2025-06-28 13:45 | disposition home or self-care (01) | DRG 807 ==
LOC: OPB 03:55 → 4S1 03:57 → 4E2 14:12